=== PATIENT | male | born 1980 | race Caucasian/White ===

== ENCOUNTER → 2022-06-18 | Outpatient (CLI) | payer BC ==
--- NOTE | 2022-06-18 19:07 | DIREP ---
PROCEDURE:XRAY SPINE THORACIC 3 VWS COMPARISON:None. INDICATIONS:M54.6 PAIN IN THORACIC SPINE FINDINGS: ALIGNMENT:No significant scoliosis. Normal thoracic kyphosis. Vertebral body alignment is maintained. VERTEBRAE:No compression deformity or acute fracture is identified. DISK SPACES:Minimal degenerative disc disease within the lower thoracic spine. OTHER:No suspicious abnormality. CONCLUSION: 1. No acute osseous abnormality or vertebral body malalignment. 2. Minimal degenerative disc disease within the lower thoracic spine. Dictated by: Agustin Stephens M.D. On 06/18/2022 at 07:04 PM
--- NOTE | 2022-06-18 19:09 | DIREP ---
PROCEDURE:XRAY SPINE LUMBAR 2-3 VWS COMPARISON:None. INDICATIONS:M54.16 RADICULOPATHY LUMBAR REGION FINDINGS: ALIGNMENT:No significant scoliosis. Normal lumbar lordosis. Vertebral body alignment is maintained. VERTEBRAE:No compression deformity or acute fracture. DISK SPACES:Minimal degenerative disc disease at the thoracolumbar junction as well as L1-L2. SPONDYLOLISTHESIS:None. SACROILIAC JOINTS:Unremarkable. CONCLUSION: 1. No acute osseous abnormality or vertebral body malalignment. 2. Minimal degenerative disc disease within the upper lumbar spine. Dictated by: Agustin Stephens M.D. On 06/18/2022 at 07:06 PM
== END | disposition home or self-care (01) ==
LOC: RAD 14:06
PROVIDERS: ATTEND Student in an Organized Health Care Education/Training Program
DX: M54.16 Radiculopathy, lumbar region (principal); M54.6 Pain in thoracic spine
CPT/HCPCS: 72072; 72100